=== PATIENT | male | born 1955 | race Asian ===

== ENCOUNTER → 2018-08-24 | Outpatient (CLI) | payer OTHER | LOC: BIMAGING 18:55 | PROVIDERS: ATTEND Internal Medicine | DX: M79.661 Pain in right lower leg (principal); M79.662 Pain in left lower leg; R20.2 Paresthesia of skin ==

== ENCOUNTER → 2018-08-25 | Outpatient (CLI) | payer OTHER | LOC: FIMAGING 14:16 | PROVIDERS: ATTEND Internal Medicine | DX: M79.605 Pain in left leg (principal); M79.604 Pain in right leg ==

== ENCOUNTER → 2018-09-11 | Outpatient (CLI) | payer OTHER | LOC: EMCIMAGING 14:16 | PROVIDERS: ATTEND Internal Medicine | DX: K76.0 Fatty (change of) liver, not elsewhere classified (principal); R18.8 Other ascites; M51.36 Other intervertebral disc degeneration, lumbar region | CPT/HCPCS: 74176-PN ==